=== PATIENT | female | born 1980 | race Caucasian/White ===

== ENCOUNTER → 2021-05-01 08:28 | Outpatient (CLI) | payer BC, SELFPAY ==
--- NOTE | ~2021-05-01 | US_ITS ---
EXAMINATION: US pelvic complete EXAM DATE: 05/01/2021 09:50 INDICATION: R93.89 - Abnormal findings on diagnostic imaging of other... Left ovarian cyst on CT. TECHNIQUE: Pelvic transabdominal and transvaginal sonogram was performed. There are multiple graysca le and Doppler images available for interpretation. There is no prior study for comparison. FINDINGS: Uterus measures 8.1 x 3.4 x 4.7 cm, is anteverted and morphologically normal. Endometrial stripe measures 6-7 mm, within normal limits. There is no free pelvic fluid. Right adnexa: The ovary measures 2.3 x 2.4 x 3.1 cm and is morphologically normal. Ovarian vascular f low confirmed. Left adnexa: The ovary measures 3.7 x 3.3 x 2.7 cm and is morphologically normal, contains the domina nt physiologic follicle measuring up to 2.5 cm. Ovarian vascular flow confirmed. IMPRESSION: 1. Unremarkable pelvic ultrasound exam. Reviewed, dictated and finalized at location B. 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
--- NOTE | ~2021-05-01 | US_ITS ---
US abdomen limited DATE: 05/01/2021 09:22 INDICATION: Liver disease TECHNIQUE: Real time imaging and doppler analysis COMPARISON: None FINDINGS: No hepatic or pancreatic mass lesion is detected. Normal hepatopedal portal venous flow. No gallstones or gallbladder wall thickening or abnormal pericholecystic fluid collection. Negative sonographic Martinez's sign. Common bile duct measures 3.3 mm, normal IMPRESSION: Negative Reviewed, dictated and finalized at Location A. Reviewed, dictated and finalized at location A. JOINER CHAINSTITCH IMPRESSION: Negative
== END ==
PROVIDERS: PCP Family Medicine; Visit Provider Nurse Practitioner Family
DX: K76.9 Liver disease, unspecified (principal); R93.3 Abnormal findings on diagnostic imaging of other parts of digestive tract
CPT/HCPCS: 76705; 76856

== ENCOUNTER 2024-09-18 15:33 | Outpatient (CLI) | payer BC, SELFPAY ==
--- NOTE | ~2024-09-18 | MM_ITS ---
EXAMINATION: MM screening alisha BI w bryan HISTORY: Screening TECHNIQUE: Craniocaudal and mediolateral oblique 3-D tomosynthesis images were obtained and synthetic 2-D images were generated. CAD analysis was submitted and interpreted. COMPARISON: No prior mammogram is available for comparison at this institution. BREAST PARENCHYMAL COMPOSITION: Not dense: There are scattered areas of fibroglandular density. FINDINGS: There is a low-density mass in the upper outer quadrant of the right breast, anterior third . There are no suspicious masses, calcifications or architectural distortion in the left breast to thompson ggest malignancy. IMPRESSION: 1. Low-density mass upper outer quadrant of the right breast, anterior third. 2. Additional mammographic views and possible breast ultrasound are recommended. BI-RADS Category 0: Incomplete: Needs additional imaging evaluation. Reviewed, dictated and finalized at location B. IMPRESSION: 1. Low-density mass upper outer quadrant of the right breast, anterior third. 2. Additional mammographic views and possible breast ultrasound are recommended . BI-RADS Category 0: Incomplete: Needs additional imaging evaluation.
== END 2024-09-18 15:34 | disposition home or self-care (01) ==
PROVIDERS: PCP Family Medicine; Visit Provider Family Medicine
DX: Z12.31 Encounter for screening mammogram for malignant neoplasm of breast (principal); R92.8 Other abnormal and inconclusive findings on diagnostic imaging of breast; N63.11 Unspecified lump in the right breast, upper outer quadrant
CPT/HCPCS: 77063; 77067

== ENCOUNTER 2024-10-16 07:50 | Outpatient (CLI) | payer BC, SELFPAY ==
--- NOTE | ~2024-10-16 | MMUS_ITS ---
EXAMINATION: MM diagnostic alisha RT w bryan, US breast RT complete HISTORY: Unspecified right breast lump TECHNIQUE: Additional 3-D tomosynthesis images of the right breast were performed and synthetic 2-D i mages were generated. CAD analysis was submitted and interpreted. High resolution complete right nael st ultrasound was performed. COMPARISON: 09/18/2024 BREAST PARENCHYMAL COMPOSITION: Dense: The breasts are heterogeneously dense, which may obscure small masses FINDINGS: MAMMOGRAPHIC FINDINGS: There is a small circumscribed low-density mass quadrant of the right breast, anterior third. This ma ss partially obscured by fibroglandular tissue. No suspicious calcifications or architectural distort ion. ULTRASOUND: Complete US of all 4 quadrants of the right breast/s and retroareolar region was reviewed. At 10:00, 3 cm from the nipple there is an oval hypoechoic parallel oriented mass measuring 11 x 5 x 9 mm with slightly irregular lateral margins. No internal vascularity or posterior features. At 1:00, 3 cm from the nipple there is an oval hypoechoic 7 mm mass with internal echogenic hilum, likely an intramamma ry lymph node with marginal vascularity. IMPRESSION: 1. Slightly irregular shaped 11 mm right breast mass at 10:00, 3 cm from the nipple. There are is a p robable benign intramammary lymph node at the same location measuring 7 mm. 2. Ultrasound-guided right breast biopsy recommended. BI-RADS category 4, suspicious findings. Reviewed, dictated and finalized at location A. IMPRESSION: 1. Slightly irregular shaped 11 mm right breast mass at 10:00, 3 cm from the ni pple. There are is a probable benign intramammary lymph node at the same locati on measuring 7 mm. 2. Ultrasound-guided right breast biopsy recommended. BI-RADS category 4, suspicious findings.
== END 2024-10-16 07:51 | disposition home or self-care (01) ==
LOC: MICIMG 07:51
PROVIDERS: PCP Family Medicine; Visit Provider Nurse Practitioner Family
DX: N63.11 Unspecified lump in the right breast, upper outer quadrant (principal)
CPT/HCPCS: 76641; 77061; 77065; G0279

== ENCOUNTER 2024-11-07 08:35 | Outpatient (CLI) | payer BC, SELFPAY ==
--- NOTE | ~2024-11-07 | MMUS_ITS ---
MM post biopsy diagnostic RT, US breast biopsy RT w image EXAMINATION: US GUIDED NEEDLE BIOPSY WITH VACUUM ASSISTANCE DATE: 11/07/2024 09:53 CDT INDICATION: Right breast mass seen on prior examination. Ultrasound-guided core biopsy is requested to evaluate for malignancy. BREAST PARENCHYMAL COMPOSITION: Dense: The breasts are heterogeneously dense, which may obscure small masses TECHNIQUE AND FINDINGS: The risks and potential benefits of the procedure were discussed with the patient, and written inform ed consent was obtained. After sterile preparation of the right breast, 1% lidocaine was utilized fo r local anesthesia. 1% lidocaine with epinephrine was used for deep anesthesia. A 10G vacuum-assisted biopsy gun needle was advanced through to the outer edge of the region of inter est from a lateral approach utilizing sonographic guidance. A total of 4 tissue core samples were ob tained through the lesion. An Inrad tissue marker clip was then placed at the biopsy site. Hemostasi s was achieved. The patient tolerated procedure well and there was no evidence of immediate complication. The patien t was given verbal instructions partly is from the department. Right breast mammograms to document t issue marker clip placement. The tissue samples were submitted to surgical pathology for histologic a nalysis. IMPRESSION: 1. Successful ultrasound-guided vacuum-assisted biopsy of right breast mass with post procedure mamm ogram for marker placement. Please refer to pathology report for histologic analysis. Reviewed, dictated and finalized at location [] IMPRESSION: 1. Successful ultrasound-guided vacuum-assisted biopsy of right breast mass wi th post procedure mammogram for marker placement. Please refer to pathology rep ort for histologic analysis.
--- NOTE | 2024-11-07 09:32 | S_PTH ---
PATIENT: Selena Pathak LOC: [facility] U#:[id number] AGE/SX: 44/F ROOM: RE11/07/[address]: Rosario Lloyd APRN : 1980 BED: DIS: 11/07/2024 SPEC #: [id number] RECD: 11/07/24 11:46 STATUS: ANURAG REKen #: [id number] LEAH: 11/07/24 09:[address]: Rosario Lloyd DEPT: [facility] Surgical RECD BY: [place] ENTERED: 11/07/24 11:46 SP TYPE: Surgical OTHR DR: Sebastián Singh MD Tissues: A - Breast Biopsy Procedures: P63 Hematoxylin and Eosin Stain Gross and Microscopic Level 4 CK 5
== END 2024-11-07 08:36 | disposition home or self-care (01) ==
PROVIDERS: PCP Family Medicine; Visit Provider Nurse Practitioner Family
DX: N63.11 Unspecified lump in the right breast, upper outer quadrant (principal); D24.1 Benign neoplasm of right breast; N60.21 Fibroadenosis of right breast
CPT/HCPCS: 19083; 77065; 88305; 88342; A4648

== ENCOUNTER 2024-12-19 08:20 | Outpatient (CLI) | payer BC, SELFPAY ==
--- NOTE | ~2024-12-19 | MMUS_ITS ---
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 Patient presents for ultrasound guided Magseed localization of the clip within the mass lesion in the 10:00 right breast. After informed consent was obtained, the patient was brought into the ultrasound room. A time-out procedure was performed. Preliminary images of the right breast were obtained to localize the target. A needle was then placed into the breast and ultrasound images were obtained to confirm position of the needle. The Magseed clip deployed immediately adjacent to the biopsy clip. Postprocedure mammogram of the right breast showed the Magseed in good position. IMPRESSION: Successful ultrasound-guided Magseed localization of right breast cancer. The patient tolerated the procedure well with no immediate post procedure complications. Reviewed, dictated and finalized at location B. IMPRESSION: Successful ultrasound-guided Magseed localization of right breast c ancer. The patient tolerated the procedure well with no immediate post procedu re complications.
== END 2024-12-19 08:21 | disposition home or self-care (01) ==
PROVIDERS: PCP Family Medicine; Visit Provider Surgery
DX: N60.91 Unspecified benign mammary dysplasia of right breast (principal)
CPT/HCPCS: 19285; 77065

== ENCOUNTER → 2024-12-26 00:11 | Day surgery (SDC) | payer BC, SELFPAY ==
--- NOTE | 2024-12-19 14:14 | PC.NURSE ---
Report to the Outpatient Waiting Room, entrance under the green pavilion located off [facility], at time _0600____ on date __12/26/2024 . Planned Procedure Time: __0730 .? Time changes happen often and if your time is changed the preop area will call you the afternoon before. - You and your visitor will be asked to self-screen and do not enter if you have any COVID symptoms. Please call surgeon if you need to reschedule. - A mask is optional within the hospital at this time. Patients may have clear liquids (water, carbonated beverages, clear teas, apple juice) until 3 hours prior to surgery with a maximum of 20 ounces. - No food from midnight until time of surgery and no smoking, or chewing tobacco (or any form of nicotine). No chewing gum, candy or mints. Take only the following medications with a SIP of water on the morning of surgery: _Buspar_ DO NOT STOP ANY OF YOUR OTHER PRESCRIPTION MEDICATIONS PRIOR TO SURGERY EXCEPT THE FOLLOWING: N/A Please no make-up, nail brit[place] virgin islander, hairspray, perfume, deodorant, or body powder the day of surgery.? No jewelry (including any body piercings) or valuables the day of surgery, leave them at home.? Please take a shower or bath the night before, or the morning of, surgery with an antibacterial soap.? Wear comfortable, loose fitting clothing.? - Jewelry must be removed prior to entering the operating room.? Rings and piercings that are not removed may be cut off. - The hospital will not accept responsibility for valuables.? - Please leave all valuables, including medications, at home the day of surgery. If you are going home after surgery, a licensed local city driver must drive you home.? - NO public transportation without another adult if you receive anesthesia. - We recommend that an adult stay with you for 24 hours following discharge. - We also recommend that you do not drive, make important decision, drink alcoholic beverages, or take any drugs that were not prescribed by your health care provider for at least 24 hours after your discharge time. Follow any additional instructions given to you from your surgeon. Telephone instructions given to ___patient (Selena) and asked if any additional questions and then verbalized understanding. Patient advised to call surgeon office or pre surgery nurse liaison [phone] if any additional questions.
[2024-12-26] VITALS (8 sets, daily range): BP systolic 109–137; BP diastolic 50–82; PULSE 58–83; RESP 15–16; TEMP 36.1–36.6; O2SAT 96–100; BMI 33.0
--- NOTE | ~2024-12-26 | MM_ITS ---
Clinical history:Breast specimen EXAM:Terres et Terroirstron breast specimen TECHNIQUE:2 images were obtained FINDINGS: A breast specimen is identified. A clip is present within the specimen. There are a few calcifications identified within the specimen. IMPRESSION: A breast specimen is identified. A clip is present within the specimen. A triangular metallic density is noted in the specimen. There are a few calcifications identified within the specimen. Correlate clinically. Reviewed, dictated and finalized at location Q. IMPRESSION: A breast specimen is identified. A clip is present within the specimen. A trian gular metallic density is noted in the specimen. There are a few calcifications identified within the specimen. Correlate clinically.
--- NOTE | 2024-12-26 07:24 | WPDANESEPPF ---
Anes - Initial Pre Proc Eval Procedure: Operation Date: 12/26/24 07:30 Proposed Procedures p Right Breast Lumpectomy with Mag Seed Localization, Possible Adjacent Tissue Transfer - Dora Membreno MD Date/Time: 12/26/24 07:24 Surgeon: Dora Membreno MD Pre Op Diagnosis: atypical ductal hyperplasia right breast Patient Data Age: 44 Gender: F Height: Weight: Allergies Allergy/AdvReac Type Severity Reaction Status Date / Time Penicillins Allergy Mild Rash Verified 12/19/24 14:22 Home Medications ?Medication ?Instructions ?Recorded ?Confirmed ?Type buspirone 7.5 mg tablet See Rx Instructions .Route 12/04/24 12/19/24 Rx .COMPLEX #180 tabs Patient hx anesthesia problems: none Family hx anesthesia problems: none Results Review: All pre-operative results and documents have been reviewed as part of the pre-operative evaluation. [facility] Past Medical History Medical History Retinitis pigmentosa BMI 30.0-30.9,adult Cataract Surgical History Surgical History History of lumbar fusion History of lumbar laminectomy H/O tubal ligation History of hernia repair Family History Family History Father Small cell carcinoma Mother No problems noted. Sibling Drug abuse Other Heart disease Social History Social History Smoking status: Never smoker Second hand tobacco smoke exposure: Yes Alcohol intake: current Drinks per week: 2 Substance use: never Substance use type: does not use Do You Feel Safe in your Home?: Yes Lack of Transportation: YES Lack of Food: Never True Current Housing: I Have Housing Concerned About Future Housing: No Difficulty Paying Gas/Electric Bills: No Difficulty Paying for Meds: No Currently Unemployed: No Education: Associate Degree Difficulty w/ Childcare or Family Care: No Living arrangements: with family Occupation/Education: occupation Additional occupation/education comments: [employer] Gender identity (if verbalized by the patient): Female Anes - Eval Final PreProcedure Day of Procedure 12/26/24 07:24 Patient weight: overweight Heart: regular rate and rhythm Lungs: clear to auscultation Airway: Mallampati scale class II Neurological: alert and oriented Last oral intake: >/= 8 hours ASA classification: II Emergent: no Anesthetic plan: proceed Anesthesia type and monitoring: general LMA and standard monitoring Results Review: All pre-operative results and documents have been reviewed as part of the pre-operative evaluation. Informed Consent: The patient's anesthetic plan and its attendant risks and benefits were discussed with the patient/family/POA. Questions were solicited and answers provided to the satisfaction of the patient/family/POA.
[2024-12-26] MEDS: LACTATED RINGERS 1,000 ML 30 ML IV CONT (07:45)
[2024-12-26] MEDS: SCOPOLAMINE 1 MG PATCH 1 PATCH TRANSDERM (07:49)
[2024-12-26] MEDS: ACETAMINOPHEN 500 MG TABLET 1000 MG PO (07:49)
[2024-12-26 07:50] LABS: BEDSIDEPREGUCG Negative (Negative)
--- NOTE | 2024-12-26 08:03 | WPDHPUPDATE1 ---
History and Physical Update Update Date/Time: 12/26/24 08:03 - Right lumpectomy with Mag seed localization and possible adjacent tissue transfer History and Physical has been reviewed, including an updated exam of the patient. There are NO changes in the patient's condition. Risks, benefits, and alternatives have been discussed and questions answered. Patient agrees to proceed with procedure.
[2024-12-26] MEDS: ceFAZolin 2 GM in SODIUM CHLORIDE 0.9% IV 50 ML 100 ML IVPB (08:36)
--- NOTE | 2024-12-26 09:15 | S_PTH ---
PATIENT: Selena Pathak LOC: [facility] U#:[id number] AGE/SX: 44/F ROOM: RE12/26/[address]: Dora Memrbeno MD : 1980 BED: DIS: SPEC #: [id number] RECD: 12/26/24 10:03 STATUS: ANURAG MAGAÑA #: [id number] LEAH: 12/26/24 09:[address]: Dora Membreno DEPT: [facility] Surgical RECD BY: Lenora Hodges MLT, ([facility]) ENTERED: 12/26/24 10:04 SP TYPE: Surgical OTHR DR: Sebastián Singh MD Tissues: A - Breast Lumpectomy Procedures: P63 Hematoxylin and Eosin Stain Gross and Microscopic Level 5 CK 5 ANNE-3
--- NOTE | 2024-12-26 09:18 | SUR.OPER ---
Right Breast Lumpectomy sent with LEATHA Fraga and received in pathology by Jimbo
--- NOTE | 2024-12-26 09:32 | W.PM.PROC2 ---
Procedure Note - Detailed Date of Procedure 12/26/24 Pre-op Diagnosis atypical ductal hyperplasia right breast Post-op Diagnosis Same Procedure Performed Right lumpectomy with magseed localization Surgeon Dora Membreno MD Anesthesia General Description of Procedure Patient was identified in the pre-operative area and brought to the OR suite. She underwent tumor localization previously by IR with magseed placement. She was laid supine in the operating table and sequential compression devices were applied. General anesthesia was induced without difficulties. The right chest was prepped and draped in a sterile fashion. The sentimag probe was used to identify the area where the magseed was placed and a superior periareolar incision was made. Dissection was carried down through the subcutaneous tissue into the breast tissue. The tumor was identified with palpation and using sentimag probe, and a rim of normal breast tissue was excised along with the tumor as our lumpectomy specimen. Once the specimen was completely excised, it was oriented using surgical paint according to hammerer helper instructions. The specimen was placed in the faxitron and 2 radiographs were obtained and sent to Radiology for radiographic confirmation of biopsy marker and magseed within the center of specimen. Once the radiographic confirmation was received, the wound was irrigated with saline and hemostasis was assured. The deep dermal layer was approximated using interrupted 3-0 vicryl followed by 4-0 monocryl for the skin. Dermabond was applied followed by a surgical bra. Patient was awoken from anesthesia and taken to the recovery area in stable condition. All needles, instruments and sponge counts were correct as reported by the operating room staff. Patient tolerated the procedure well with no immediate complications. Estimated Blood Loss 5 Pathology Yes Complications No immediate complications Condition Stable Disposition PACU [facility] Billing Surgery - Charge Forward: Surgery Billing (CPT 75013)
[2024-12-26] MEDS: oxyCODONE HCL (*CRX) 5 MG TAB IR PO (11:00)
== END | disposition home or self-care (01) ==
PROVIDERS: PCP Family Medicine; Visit Provider Surgery
PROC: (CPT 19301; principal; 2024-12-26 07:30)
DX: D24.1 Benign neoplasm of right breast (principal); N62 Hypertrophy of breast; H35.52 Pigmentary retinal dystrophy; Z98.890 Other specified postprocedural states; Z98.1 Arthrodesis status; Z98.51 Tubal ligation status; Z80.8 Family history of malignant neoplasm of other organs or systems; Z82.49 Family history of ischemic heart disease and other diseases of the circulatory system
CPT/HCPCS: 19301; 76098; 88307; 88342; J0690; A9270; J1100; J1200; J2003; J2250; J2405; J2704; J3010; J7120; Q9968

== ENCOUNTER 2025-01-24 15:29 | Outpatient (CLI) | payer BC, SELFPAY ==
--- OUTSIDE RECORDS SUMMARY | 2025-01-24 15:00 | XMS_ITS | Encounter Summary ---
Author Organization [facility] Address [address] [place] [address] Care Team Providers Care Coverer Name Role Phone Unavailable Primary Care Provider Unavailabl e Reason for Visit * Reason Comments Establish Care Encounter Details Date Type Department Care Team (Late st Contact Info) Description 01/24/2025 3:00 PM CDT Office Visit [facility] - [place] [address] [facility] [address] [place] [address] Job Patel MD [address] [facility] [address] [place] [address] Atypical ductal hyperplasia of right breast (Primary Dx) Social History Tobacco Use Types Packs/Day Years Used Date Smoking Tobacco: Never Smokeless Tobacco: Never Tobacco Cessation:Counseling Given: Not Answered Alcohol Use Standard Drinks/Week Comments Yes 0 (1 standard drink = 0.6 oz pur e alcohol) Occasionally Comments Unknown Sex and Gender Information Value Date Recorded Sex Assigned at Not on file Legal Sex Female 2:41 PM CDT Gender Identity Not on file Sexual Orientation Not on file documented as of this encounter Last Filed Vital Signs Vital Sign Reading Time Taken Comments Blood Pressure 149/94 01/24/2025 2:48 PM CDT Pulse 87 01/24/2025 2:45 PM CDT Temperature 36.7 C (98.1 F) 01/24/2025 2:45 PM CDT Respiratory Rate 15 01/24/2025 2:45 PM CDT Oxygen Saturation 97% 01/24/2025 2:45 PM CDT Inhaled Oxygen Concentration - - Weight 96.4 kg (212 lb 9.6 oz) 01/24/2025 2:45 P M CDT Height 170.2 cm (5' 7) 01/24/2025 2:45 PM CDT Body Mass Index 33.3 01/24/2025 2:45 PM CDT documented in this encounter Progress Notes * Job Patel MD - 01/24/2025 4:02 PM CDT Hematology-oncology consult Note Requesting Physician Dora Membreno MD Primary Care Physician No primary care provider on file. Problem list There is no problem list on file for this patient. Previous TREATMENT ? Measurable Disease ? Reason for Visit Selena Pathak is a 44 y.o. female who was referred for consultation for multifocal atypical ductal hyperplasia. History of present illness This is a pleasant 44-year-old obese female with history of retinitis pigmentosa and anxiety referred to me for recently diagnosed multifocal atypical ductal hyperplasia. She has no previous history of malignancy. There is a family history of ovarian cancer in the mother diagnosed in her 40s. Patient had a screening mammogram done on September 18, 2024 that showed low density mass in the upper outer quadrant of the right breast. Breast ultrasound from October 16 showed irregular 11 mm right breast mass at 10 o'clock position 3 cm from the nipple. Patient had biopsy done on November 07, 2024 and pathology showed fibroadenoma, fibrocystic changes with atypical ductal hyperplasia. Patient had right-sided lumpectomy and Magseed localization done on December 26, 2024. Pathology from the lumpectomy showed multifocal atypical ductal hyperplasia with fibrocystic changes and fibroadenoma 6 mm in dimension. Past Medical History Past Medical History: Diagnosis Date Retinitis legally blind Surgical History Past Surgical History: Procedure Laterality Date HX BREAST LUMPECTOMY FOR CANCER HX CATARACT REMOVAL HX HERNIA REPAIR HX SPINAL SURGERY Medications Current Outpatient Medications Medication Sig Dispense Refill busPIRone (BUSPAR) 7.5 mg Tablet Take 1 Tablet by mouth 2 times daily. tamoxifen (NOLVADEX) 20 mg tablet Take 1 Tablet (20 mg) by mouth daily. 90 Tablet 2 No current facility-administered medications for this visit. Allergies Allergies Allergen Reactions Penicillins Rash Immunizations: There is no immunization history on file for this patient. Family History Family History Problem Relation Name Age of Onset Mesothelioma Father Ovarian Cancer Mother Heart Disease Mother Skin Cancer Mother No Known Problems Brother No Known Problems Brother No Known Problems Sister No Known Problems Sister No Known Problems Sister No Known Problems Child No Known Problems Child No Known Problems Child Social History Social History Tobacco Use Smoking status: Never Smokeless tobacco: Never Substance Use Topics Alcohol use: Yes Comment: Occasionally Review of Systems Constitutional: Patient did not mention fever; no night sweats; no anorexia; no weight loss; no fatique NEENT: Patient did not mention headache; no change in vision; no change in hearing; no sore throat;no dysphagia Respiratory: Patient did not mention shortness of breath; no pleuritic chest pain; no cough; no hemoptysis Cardiac: Patient did not mention cardiac-like chest pain; no palpitations; no orthopnea; no PND; noDOE Breasts: Patient did not mention tenderness; no masses GI: Patient did not mention abdominal pain; no nausea; no vomiting; no diarrhea; no hematochezia; no melena : Patient did not mention dysuria; no frequency; no hesitancy; no hematuria ENAMEL BURNER: Musculosketetal: Patient did not mention bone pain; no arthralgia; no joint swelling; no myalgia; Skin: Patient did not mention pruritis; no rash; no petechiae; no ecchymoses Endocrine: Patient did not mention polydipsia; no polyuria; no unusual weight gain Neuro: Patient did not mention headache; no change in vision; no sensory changes; no muscle weakness; no confusion; no seizures Psych: Patient did not mention anxiety; no depression; Physical Exam Vitals: As per nursing note Constitutional: Well developed, well nourished, no acute distress, non-toxic appearance Teeth and gum. No signs of infection or swelling. Eyes: PERRL, conjunctiva normal HEENT: Atraumatic, external ears normal, nose normal, oropharynx moist, no pharyngeal exudates. no sinus tenderness Neck- normal range of motion, no tenderness, supple Respiratory: No respiratory distress, normal breath sounds, no rales, no wheezing Breasts: Postoperative changes and scarring in the right breast upper outer quadrant without any masses and lymphadenopathy. Cardiovascular: Normal rate, normal rhythm, no murmurs, no gallops, no rubs GI: Soft, nondistended, normal bowel sounds, nontender, no splenomegaly, no hepatomegaly, no mass, no rebound, no guarding : No costovertebral angle tenderness Musculoskeletal: No edema, no tenderness, no deformities. Back- no tenderness Integument: Well hydrated, no rash, Digits and nails inspection normal Lymphatic: No lymphadenopathy noted Neurologic: Alert & oriented x 3, CN 2-12 normal, normal motor function, normal sensory function, no focal deficits noted Psychiatric: Speech and behavior appropriate ? labs No results found for this or any previous visit (from the past 24 hours). Pathology ? Imaging & Other Studies Performance Status? Assessment / Plan: ? Multifocal atypical ductal hyperplasia status post right breast lumpectomy done on December 26, 2024. Patient is a 44-year-old obese female with history of anxiety and retinitis pigmentosafound to have low density mass in the upper outer quadrant of the right breast on the routine screening mammogram. Patient had biopsy done on November 07, 2024 that came back positive for fibrocystic changes with atypical ductal hyperplasia. Patient had Magseed localization and lumpectomy done on December 26, 2024 that showed multiple areas of atypical ductal hyperplasia with fibrocystic changes andfibroadenoma. On my pathology review it seems like all the margins were clear. Patient mother was diagnosed with ovarian cancer in her 40s. There is no family history of breast cancer. I have discussed the risk associated with multifocal atypical ductal hyperplasia for invasive breast cancer which is 4-5 times higher than the general population and 25 to 30% over 25 years. I discussed the management that would include chemoprevention which can reduce her risk for developing invasive cancer about 50 to 70% in some studies. She will also get yearly mammogram and bilateral breast MRI. MRI has been ordered by surgery service for April 2025. I have recommended frequent self breast examination.I will order baseline labs today to include CBC and CMP. She will start taking tamoxifen 20 mg daily. I have discussed the side effects in detail. I will see her back in 3 months for physical examination and lab monitoring. I have answered all questions to patient satisfaction. Anxiety. Patient is on BuSpar. Thank you very much for allowing me to participate in Selena Pathak's evaluation and management.Please feel free to contact if I can be of any further assistance in your patient???s care requiring hematology or oncology evaluation. Sincerely, ? ? Job Patel M.D. cell TOBACCO COUNSELING She is not a tobacco/nicotine user. Job Patel MD ,01/24/2025 4:03 PM ? Total time spent 60 minutes, two third of the total time spent counseling patient [id number]. CC:? 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 Office Visit [facility] - [place] [address] [facility] [address] [place] [address] Job Patel MD [address] [facility] [address] [place] [address] Scheduled Orders Name Type Priority Associated Diagnoses Orde r Schedule CBC WITH DIFFERENTIAL Lab Stat Atypical ductal hyperplasia of right breast Expected: 01/24/2025, Expires: 01/24/2026 COMPREHENSIVE METABOLIC PANEL Lab Stat Atypical ductal hyperplasia of right breast Expected: 01/24/2025, Expires: 01/24/2026 CBC WITH DIFFERENTIAL Lab Stat Atypical ductal hyperplasia of right breast Expected: 04/18/2025, Expires: 01/24/2026 COMPREHENSIVE METABOLIC PANEL Lab Stat Atypical ductal hyperplasia of right breast Expected: 04/18/2025, Expires: 01/24/2026 documented as of this encounter Visit Diagnoses Diagnosis Atypical ductal hyperplasia of right breast- Primary documented in this encounter
[2025-01-24 15:46] LABS: Hematocrit 39.7 % (37.0-47.0); Hemoglobin 12.2 g/dL (12.0-15.0); Immature Granulocyte Percent A 0.3 % (0-0.5); Lymphocytes Absolute Auto 2.86 K/mm3 (0.9-3.2); Mean Corpuscular HGB Conc 30.7 g/dl (32-36); Mean Corpuscular Hemoglobin 26.1 pg (26-34); Mean Corpuscular Volume 84.8 fl (80-100); Nucleated Red Blood Cells Absolute Auto 0.000 K/mm3 (0.0-0.012); Nucleated Red Blood Cells Perc 0.0 % (0.0-0.2); Platelet Count Result 421 k/mm3 (150-375); Red Blood Count 4.68 M/mm3 (4.2-5.4); White Blood Count 9.9 K/mm3 (4.5-10.0)
[2025-01-24 16:33] LABS: Alanine Aminotransferase 36 U/L (6-35); Albumin Level 4.4 g/dL (3.5-5.1); Alkaline Phosphatase 69 U/L (38-126); Anion Gap 10 mmol/L (4-12); Aspartate Amino Transferase 33 U/L (14-36); Bilirubin,Total 0.8 mg/dL (0.2-1.3); Blood Urea Nitrogen 13 mg/dL (7-17); Calcium 9.7 mg/dL (8.4-10.2); Carbon Dioxide 24 mmol/L (22-30); Chloride 103 mmol/L (98-107); Estimated Glomerular Filt Rate > 60; Glucose 99 mg/dL (65-110); Potassium 4.0 mmol/L (3.4-5.0); Sodium 137 mmol/L (137-145); Total Protein 7.7 g/dL (6.3-8.2)
--- OUTSIDE RECORDS SUMMARY | 2025-01-24 17:31 | XMS_ITS | Clinical Summary ---
Author Organization [facility] Abdoulaye crump Diegojonathan Address [address] [facility] [place] [address] Care Team Providers Care Softball Player Name Role Phone Unavailable Primary Care Provider Unavailabl e Allergies Active Allergy Reactions Criticality Noted Date Comments Penicillins Rash Low 01/24/2025 Medications busPIRone (BUSPAR) 7.5 mg Tablet Take 1 Tablet by mouth 2 times daily. 12/04/2024 Active tamoxifen (NOLVADEX) 20 mg tablet Take 1 Tablet (20 mg) by mouth daily. 90 Tablet 2 01/24/2025 Active Active Problems No known active problems Encounters Date Type Department Care Team Description 01/24/2025 3:00 PM CDT Office Visit [facility] - [place] [address] [address] Job Patel MD Atypical ductal hyperplasia of right breast (Primary Dx) from Last 3 Months Family History Medical History Relation Name Comments No Known Problems Brother 1 No Known Problems Brother 2 No Known Problems Child 1 No Known Problems Child 2 No Known Problems Child 3 Mesothelioma Father Heart Disease Mother Ovarian Cancer Mother Skin Cancer Mother No Known Problems Sister 1 No Known Problems Sister 2 No Known Problems Sister 3 Relation Name Status Comments Brother 1 Alive Brother 2 Alive Child 1 Alive Child 2 Alive Child 3 Alive Father Mother Sister 1 Alive Sister 2 Alive Sister 3 Alive Social History Tobacco Use Types Packs/Day Years [...] on file Sexual Orientation Not on file Last Filed Vital Signs Vital Sign Reading [...] Mass Index 33.3 01/24/2025 2:45 PM CDT Plan of Treatment Upcoming Encounters Date Type Department Care Team (Late st Contact Info) Description 05/07/2025 10:00 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 Office Visit [facility] - [place] [address] [facility] [address] [place] [address] Job Patel MD [address] [facility] [address] [place] [address] Health Maintenance Due Date Last Done Comments DTAP/TDAP/TD VACCINES (1 - Tdap) 07/01/1999 HEPATITIS B VACCINES (1 of 3 - 19+ 3-dose series) 06/11 HPV/Cotest (21-29) 2001 HPV VACCINES (1 - 3-dose SCDM series) 07/01/2007 CERVICAL CANCER SCREENING 2010 HPV/Cotest (30-65) 2010 PAP SMEAR 2010 BREAST CANCER SCREENING 2020 Preventative Visit- Commercial 04/12/2024 INFLUENZA VACCINE (#1) 2024 Insurance BCBS [facility]
== END 2025-01-24 15:30 | disposition home or self-care (01) ==
PROVIDERS: PCP Family Medicine; Visit Provider Internal Medicine Hematology & Oncology
DX: N60.91 Unspecified benign mammary dysplasia of right breast (principal)
CPT/HCPCS: 36415; 80053; 85025